=== PATIENT | male | born 1965 | race Caucasian/White ===

== ENCOUNTER 2018-05-25 07:22 | Inpatient (IN) | payer BC ==
[~2018-05-25] VITALS: Ht 175.3 cm; Wt 158.8 kg
[~2018-05-25 07:22] MED LIST: BUDEPRION SR150 MG PO; CARISOPRODOL 3350 MG PO; CELEXA20 MG PO; CIPRO500 MG PO; DEPAKOTE ER500 MG PO; HYDROCODON-ACE1 EAC7 PO; HYTRIN 5 M5 MG/1 CAP PO; LIPITOR10 MG PO; LISINOPRIL40 MG PO; METFORMIN 500500 MG PO; PERCOCET 5-3251 EACH PO; PERCOCET 7.5-51 EACH PO; SEROQUEL 25 MG25 M1 PO
[2018-05-25 07:34] VITALS: BP 117/78
[2018-05-25] MEDS ORDERED: OXYBUTYNIN 5 MG5 M2 PO (07:38)
[2018-05-25] MEDS ORDERED: CYMBALTA60 MG PO (07:40)
[2018-05-25] MEDS ORDERED: METFORMIN HCL500 MG PO (07:40)
[2018-05-25] MEDS ORDERED: HYDROCHLOROTH12.5 M1 PO (07:40)
[2018-05-25] MEDS ORDERED: TERAZOSIN HCL10 MG PO (07:41)
[2018-05-25 07:51] LABS: URINE BLOOD TRACE (Negative); URINE CLARITY SL CLOUDY; URINE COLOR DARK YELLOW; URINE GLUCOSE-RANDOM TRACE (Negative); URINE KETONES TRACE (Negative); URINE NITRITE-REFLEX NEGATIVE (Negative); URINE PROTEIN 1+ (Negative); URINE SPECIFIC GRAVITY >= 1.030 (1.005-1.030); URINE UROBILINOGEN 0.2 E.U./dl (0.2-1.0)
[2018-05-25 07:54] LABS: ICTOTEST (BILI CONFIRMATORY) Negative (Negative); URINE BILIRUBIN 1+ (Negative); URINE LEUKOCYTES-REFLEX 2+ (Negative)
[2018-05-25 07:59] LABS: BACTERIA-REFLEX 1-9 Few /HPF (None Seen); CASTS None Seen /LPF (None Seen); MUCUS 4-6 Moderate strn/LPF (None Seen); SQUAMOUS 0-3 Few /LPF (0-3); URINE RBC 0-2 Rare /HPF (0-2); URINE WBC-REFLEX 6-15 Few /HPF (0-5)
[2018-05-25 08:00] LABS: AMORPHOUS URATES Few /LPF (None Seen)
[2018-05-25 08:21] LABS: HEMATOCRIT 37.1 % (42.0-52.0); HEMOGLOBIN 12.2 gm/dL (14.0-18.0); MCHC 32.8 g/dL (28.0-37.0); MCV 82.2 fL (80.0-100.0); MPV 7.2 fl. (7.2-11.1); RBC 4.52 mil/uL (4.50-6.00); RDW-CV 13.2 % (10.5-14.5)
--- NOTE | 2018-05-25 08:33 | NUR ---
PT BACK FROM RADIOLOGY VIA STRETCHER. [facility] EMT AT BEDSIDE PERFORMING EKG.
[2018-05-25 08:48] LABS: ALBUMIN 3.2 g/dL (3.4-5.0); ALKALINE PHOSPHATASE 104 U/L (46-116); ANION GAP 10 mmol/L (7-16); BUN 20 mg/dL (7-18); CALCIUM 8.8 mg/dL (8.5-10.1); CHLORIDE 98 mmol/L (98-107); CO2 29 mmol/L (21-32); CREATININE 1.5 mg/dL (0.6-1.3); GLUCOSE 212 mg/dL (70-99); LIPASE 64 U/L (73-393); POTASSIUM 3.5 mmol/L (3.5-5.1); SGOT 13 U/L (15-37); SGPT 23 U/L (30-65); SODIUM 137 mmol/L (136-145); TOTAL BILIRUBIN 1.1 mg/dL (<0.1-1.0); TOTAL PROTEIN 7.4 g/dL (6.4-8.2); TROPONIN-I LEVEL <0.06 ng/mL (<0.06)
--- NOTE | 2018-05-25 10:24 | NUR ---
REPORT GIVEN TO INPATIENT NURSE, IWONA CLARK BY THIS NURSE AT THIS TIME. PT TO BE PREPARED FOR ADMISSION.
[2018-05-25 10:29] VITALS: BP 114/58
[2018-05-25 10:46] VITALS: BP 141/93
[2018-05-25 11:27] LABS: APTT 30.1 Seconds (25.0-31.3); INR 1.1; PROTIME 11.5 Seconds (9.20-11.50)
[2018-05-25 16:00] VITALS: BP 104/58
--- NOTE | 2018-05-25 16:00 | EKG ---
[place] [address] ELECTROCARDIOGRAM REPORT Name: RAY BROWN Room: [address] ADM IN M.R.#: [id number] Admission: 05/25/18 Attend Phys: Isabel Boucher Discharge: Date of : 63 Report #: [id number] THIS REPORT FOR: //name// [facility] ED Test Date: 2018-05-25 Test Time: 08:41:00 Pat Name: RAY BROWN Department: Room: [facility] Gender: M Lead Former: : 1965 Requested By: Sinan Ellison Order Number: [id number] MD: Hieu Grande Measurements Intervals [place] Rate: 115 P: 74 FL: 172 QRS: 75 QRSD: 83 T: 21 QT: 301 QTc: 417 Interpretive Statements Sinus tachycardia Abnormal R-wave progression, early transition Baseline wander in lead(s) V6 Compared to ECG 02/13/2015 19:37:04 Sinus rate has increased Myocardial infarct finding no longer present Electronically Signed On 05-25-2018 16:00:29 CDT by Hieu Grande [email or web address] <ELECTRONICALLY SIGNED> By: Hieu Grande MD, FACC 05/25/18 1600 [id number] Hieu Grande MD, [facility] /EPI
--- NOTE | 2018-05-25 17:11 | NUR ---
ASSESSMENT COMPLETE. PT ALERT AND ORIENTED X4. ADMITTED WITH OLIGURIA/SEPSIS/ AND UTI. IV BOLUS GIVEN. IV ABX GIVEN ORDERED. PAIN CONTROLLED WITH NORCO AND MORPHINE. IV FLUIDS INFUSING. PT WAS POSITIVE FOR SEPSIS IN ER. BALBUENA IN PLACE WITH OLIGURIA NOTED. SEE CT OF ABDOMEN NOTES, PT INFORMED FROM DR ABOUT ENLARGED PROSTATE WITH MASS. SKIN INTACT. PT IS ON ROOM AIR, VSS. SEE ASSESSMENT AND VITALS FOR OTHER DETAILS. CALL LIGHT WITHIN REACH, WILL CONTINUE PLAN OF CARE
[2018-05-25 23:40] VITALS: BP 92/53
--- NOTE | 2018-05-26 05:01 | NUR ---
PATIENT SLEPT WELL DURING THIS SHIFT; AT BEDSIDE. PT WITH SALINE LOCK IN LT AC; PATENT. PT REQUESTED PAIN MEDICATION APPROX Q2H AND RECEIVED MORPHINE ALTERNATED WITH HYDROCODONE. PT WITH BALBUENA TO DEPENDENT DRAIN WITH DARK TEA COLORED URINE. URINE HAD LEAKED AROUND BALBUENA AND LINENS/GOWN WAS SATURATED. LINENS CHANGED AND PT GIVEN NEW GOWN. FREQUENTLY USED ITEMS AND CALL LIGHT WITHIN REACH. SIDERAILS UPX2. WILL CONTINUE TO MONITOR.
[2018-05-26 06:41] LABS: HEMOGLOBIN 11.3 gm/dL (14.0-18.0); MCH 27.2 pg (26.0-34.0); MCHC 32.3 g/dL (28.0-37.0); MCV 84.2 fL (80.0-100.0); MPV 7.4 fl. (7.2-11.1); RBC 4.16 mil/uL (4.50-6.00); RDW-CV 13.5 % (10.5-14.5); WBC 23.4 thou/uL (4.0-11.0)
[2018-05-26 07:05] LABS: CREATININE 1.3 mg/dL (0.6-1.3); POTASSIUM 3.6 mmol/L (3.5-5.1)
[2018-05-26 07:42] VITALS: BP 106/66
--- NOTE | 2018-05-26 16:10 | NUR ---
SW met with pt, pt , and pt parents to complete initial assessment, introduce self, and SW role. Pt alert, oriented, pleasant. Pt lives at home with his . Pt home is handicap accessible. Pt has a RW and a cane. Pt continues to go to OP therapies after his knee surgery. Pt concerned with whether or not pt may go home with a catheter and/or IV abx. SW discussed following for doctor's orders/recommendations and possibility for HH RN orders to assist with HH needs. SW to continue to follow to assist with safe dc planning.
--- NOTE | 2018-05-26 16:29 | NUR ---
ASSESSMENT COMPLETE. PT ALERT AND ORIENTED X4. PT GIVEN PRN PAIN MEDICATION FREQUENTLY THROUGHOUT THE SHIFT. PT HAS IV FLUIDS INFUSING. PT IS ON ROOM AIR, VSS. UROLOGY CONSULT TODAY, SEE NOTEDS. UROLOGY IRRIGATED BALBUENA, IN PLACE WITH OUTPUT. PT GIVEN MAG CITRATE FOR CONSTIPATION. PEPCID STARTED FOR REFLUX. PT IS RESTING WITH FAMILY AT BEDSIDE, NO OTHER CONCERNS AT THIS TIME. SEE ASSESSMENT AND VITALS FOR OTHER DETAILS. CALL LIGHT WITHIN REACH, WILL CONTINUE PLAN OF CARE
[2018-05-26 18:06] VITALS: BP 136/78
[2018-05-27 02:30] VITALS: BP 118/85
[2018-05-27 04:40] LABS: HEMATOCRIT 32.7 % (42.0-52.0); HEMOGLOBIN 10.8 gm/dL (14.0-18.0); MCH 27.7 pg (26.0-34.0); MCHC 32.9 g/dL (28.0-37.0); MCV 84.3 fL (80.0-100.0); MPV 7.5 fl. (7.2-11.1); RBC 3.88 mil/uL (4.50-6.00); RDW-CV 13.9 % (10.5-14.5); WBC 16.2 thou/uL (4.0-11.0)
[2018-05-27 05:07] LABS: CALCIUM 8.1 mg/dL (8.5-10.1); CREATININE 1.1 mg/dL (0.6-1.3); POTASSIUM 3.7 mmol/L (3.5-5.1)
--- NOTE | 2018-05-27 05:09 | NUR ---
PATIENT ALERT/ORIENTED X4 BUT SOMEWHAT CONFUSED/FORGETFUL AT TIMES. PT WITH FLUIDS INFUSING PER DR ORDER. PT RECEIVED MORPHINE 4MG IV AND HYDROCODONE 2 TABS. THESE WERE ALTERNATED. PT IS ON ROOM AIR. VITALS WNL. PT WITH BALBUENA TO DEPENDENT DRAIN; DARK YELLOW URINE. PT WITH ACTIVE BOWEL SOUNDS AND PASSING FLATUS BUT DID NOT HAVE A BOWEL MOVEMENT. FREQUENTLY USED TIEMS AND CALL LIGHT WITHIN REACH. SIDERAILS UPX2. AT BEDSIDE. WILL CONTINUE TO MONITOR.
--- NOTE | 2018-05-27 13:05 | NUR ---
Nutrition: Pt assessed for high BMI and sepsis DX. Pt has SIRS with TOBI, prostatitis. H/o DM, HTN. Alb 3.2, BG 159. Wt: 350#. RX noted. Regular diet ordered. No nutrition interventions needed at this time. Low risk.
[2018-05-27 15:00] VITALS: BP 133/83
[2018-05-27 23:00] VITALS: BP 144/93
[2018-05-28 03:55] LABS: HEMATOCRIT 33.4 % (42.0-52.0); MCH 27.7 pg (26.0-34.0); MCHC 32.9 g/dL (28.0-37.0); MCV 84.2 fL (80.0-100.0); MPV 7.1 fl. (7.2-11.1); RBC 3.97 mil/uL (4.50-6.00); WBC 10.8 thou/uL (4.0-11.0)
[2018-05-28 04:02] LABS: CALCIUM 7.8 mg/dL (8.5-10.1); POTASSIUM 3.5 mmol/L (3.5-5.1)
--- NOTE | 2018-05-28 05:55 | NUR ---
PATIENT SLEPT PART OF THE NIGHT. IV FLUIDS CONTINUE TO INFUSE AT 100. BALBUENA REMAINS TO DEPENDENT DRAIN BUT DOES CONTINUE TO LEAK WHEN PATIENT HAS BLADDER SPASMS. PATIENT WAS GIVEN PAIN MEDICINE ABOUT EVERY TWO HOURS ALTERNATING THE IV AND PO PAIN MEDS. WILL CONTINUE TO MONITOR.
[2018-05-28 06:05] LABS: % FREE PSA 20.4 % (()); FREE PSA 24.95 ng/mL
[2018-05-28 08:00] VITALS: BP 179/110
[2018-05-28 09:15] VITALS: BP 186/101
--- NOTE | 2018-05-28 09:30 | NUR ---
ASSUMED CARE OF PT AT 0700. PT ASSESSMENT COMPLETE, REQUESTING PAIN MEDICATION FOR 10/10 PAIN IN GROIN /SCROTUM AREA. PT BLOOD PRESSURE ELEVATED, WILL ADMINISTERED MEDS AND RE-EVALUATE. 0800 PRN PAIN MEDICATION GIVEN. 0900 NO RELIEF OBTAINED FROM MORPHINE AT 0800. PT B/P STILL ELEVATED. HYDROCODONE GIVEN. 0930 REASSESED PT FOR ELEVATED B/P. PT HAS SOME RELIEF FROM NORCO, RATES PAIN AT 8/10. B/P REMAINS ELEVATED AT 186/101. THIS NURSE PAGED DR. GRIDER AND INFORMED HIM OF B/P. HE WILL LOOK OVER HIS PAIN MEDS AND LOOK INTO. WILL CONT TO MONITOR. CALL LIGHT IN REACH.
[2018-05-28 10:30] VITALS: BP 151/93
[2018-05-28 17:02] VITALS: BP 154/95
[2018-05-29 04:04] LABS: HEMATOCRIT 32.9 % (42.0-52.0); HEMOGLOBIN 10.9 gm/dL (14.0-18.0); MCH 27.7 pg (26.0-34.0); MCHC 33.1 g/dL (28.0-37.0); MCV 83.6 fL (80.0-100.0); MPV 6.9 fl. (7.2-11.1); RBC 3.94 mil/uL (4.50-6.00); RDW-CV 13.7 % (10.5-14.5); WBC 8.6 thou/uL (4.0-11.0)
[2018-05-29 04:41] LABS: CALCIUM 8.4 mg/dL (8.5-10.1); CREATININE 0.9 mg/dL (0.6-1.3)
[2018-05-29 07:11] VITALS: BP 162/86
--- NOTE | 2018-05-29 07:35 | NUR ---
PATIENT SLEPT MOST OF THE NIGHT. IV FLUIDS CONTINUE TO INFUSE AT 75 ML/HR. PATIENT WAS GIVEN PAIN MEDICINE ABOUT EVERY THREE TO FOUR HOURS. BALBUENA REMAINS TO DEPENDENT DRAIN. WILL CONTINUE TO MONITOR.
[2018-05-29 15:30] VITALS: BP 125/55
--- NOTE | 2018-05-29 15:32 | NUR ---
ASSESSMENT COMPLETE. PT ALERT AND ORIENTED X4. PRN PAIN MEDICATION GIVEN NEEDED. PT IS UP AD RAJI, SAT IN CHAIR MOST OF THE DAY. PT IS ON ROOM AIR, VSS. DENIES N/V. HOME MED LISINOPRIL STARTED TODAY FOR BP. PT HAS NO OTHER CONCERNS AT THIS TIME. SEE ASSESSMENT AND VITALS FOR OTHER DETAILS. CALL LIGHT WITHIN REACH, WILL CONTINUE PLAN OF CARE
[2018-05-29 20:15] VITALS: BP 165/85
[2018-05-30 00:30] VITALS: BP 160/91
[2018-05-30 04:15] VITALS: BP 152/80
--- NOTE | 2018-05-30 06:46 | NUR ---
HEART RATE WITHIN NORMAL LIMITS DURING SHIFT. PT HYPERTENSIVE AT TIMES. BLOOD PRESSURE ELEVATED WHEN PT STRAINING TO PUSH URINE OUT OF HIS BLADDER. PT HAD 300 ML ORANGE URINE IN BALBUENA AT END OF SHIFT. PT USING TOWELS TO PLACE UNDER MARCOS AREA TO AVOID BEING WET AFTER STRAINNG TO URINATE. PT INFORMED TO ALLOW BALBUENA TO CATCH URINE. PT STILL STRAINS AND PUSHES URINE OUT SIDES OF CATHETER. .
[2018-05-30 08:50] VITALS: BP 143/100
[2018-05-30] MEDS ORDERED: FINASTERIDE5 MG PO (11:21)
[2018-05-30] MEDS ORDERED: PHENAZOPYRIDIN100 M1 PO (11:21)
[2018-05-30] MEDS ORDERED: CEFUROXIME250 MG PO (11:21)
[2018-05-30 16:00] VITALS: BP 143/100; BP 158/96
[2018-05-30] MEDS ORDERED: PERCOCET 10-321 EACH PO (16:10)
--- NOTE | 2018-05-30 16:13 | NUR ---
I ASSUMED CARE OF THE PATIENT AT 0700. HE IS ALERT AND ORIENTED X4 AND UP AD RAJI. HE WAS RESTING DURING REPORT. BED IS IN THE LOW LOCKED POSITION AND CALL LIGHT IS IN REACH. HOURLY ROUNDING IS COMPLETED AND PATIENT NEEDS ARE MET. PAIN IS MANAGED PARTIALLY WITH PRN MEDS. PATIENT INFORMED ME THAT HE WILL READJUST HIS TIMES/DOSAGES WHEN HE GETS HOME. BALBUENA IS REMOVED AND PVD IS LESS THAN 100 CC. NEW ORDERS FOR PAIN MEDS ARE OBTAINED AND CHARTED. UROLOGY IS SIGNING OFF AND WANT TO FOLLOW UP IN 2-3 WEEKS. FAMILY IS AT THE BEDSIDE. PATIENT WAS VERY ANGRY FOR A WHILE THIS MORNING UNTIL HE UNDERSTOOD THAT HIS PAIN MEDS ARE PRN AND THEY ARE TIMED.
== END 2018-05-30 16:40 | disposition home or self-care (01) | DRG 871 ==
LOC: M.ERS 07:22 → M.TBA-ER 09:33 → M.3W 09:33
PROVIDERS: Emergency Medicine Emergency Medical Services; ADMIT Internal Medicine
DX: A41.9 Sepsis, unspecified organism (principal); N17.0 Acute kidney failure with tubular necrosis; N39.0 Urinary tract infection, site not specified; N41.0 Acute prostatitis; I10 Essential (primary) hypertension; E11.9 Type 2 diabetes mellitus without complications; E78.00 Pure hypercholesterolemia, unspecified; N40.1 Benign prostatic hyperplasia with lower urinary tract symptoms; Z96.653 Presence of artificial knee joint, bilateral; K59.00 Constipation, unspecified; G47.33 Obstructive sleep apnea (adult) (pediatric); R33.8 Other retention of urine; B96.1 Klebsiella pneumoniae [K. pneumoniae] as the cause of diseases classified elsewhere; Z79.899 Other long term (current) drug therapy; Z79.84 Long term (current) use of oral hypoglycemic drugs

== ENCOUNTER 2018-09-15 06:05 | Inpatient (IN) | payer BC | END 2018-09-16 11:45 | disposition home or self-care (01) | DRG 714 | LOC: M.SUR 06:05 → M.ORTHSURG 11:16 | PROVIDERS: ADMIT Family Medicine | PROC: 0VT08ZZ Resection of Prostate, Via Natural or Artificial Opening Endoscopic (ICD-10-PCS; principal; 2018-09-15) | DX: N40.1 Benign prostatic hyperplasia with lower urinary tract symptoms (principal); I10 Essential (primary) hypertension; G47.33 Obstructive sleep apnea (adult) (pediatric); E11.65 Type 2 diabetes mellitus with hyperglycemia; Z96.653 Presence of artificial knee joint, bilateral; E78.5 Hyperlipidemia, unspecified; Z82.49 Family history of ischemic heart disease and other diseases of the circulatory system; Z79.899 Other long term (current) drug therapy ==

== ENCOUNTER → 2020-06-04 | Outpatient (CLI) | payer BC ==
[~2020-06-04] MED LIST changes: +AMARYL2 MG PO; +BACTRIM DS TAB1 EAC1 PO; +CEFUROXIME250 MG PO; +CYMBALTA60 MG PO; +FINASTERIDE5 MG PO; +HYDROCHLOROTH12.5 M1 PO; +METFORMIN HCL500 MG PO; +OXYBUTYNIN 5 MG5 M2 PO; +PERCOCET 10-321 EACH PO; +PHENAZOPYRIDIN100 M1 PO; +SENNA S TABLET1 EACH PO; +TERAZOSIN HCL10 MG PO
== END ==
LOC: M.LAB 09:25
PROVIDERS: ATTEND Podiatrist Foot Surgery
DX: Z01.812 Encounter for preprocedural laboratory examination (principal); Z20.822 Contact with and (suspected) exposure to COVID-19